=== PATIENT | male | born 1960 ===

== ENCOUNTER 2024-06-15 13:40 | Inpatient (IN) ==
[2024-06-15] MEDS: cefTRIAXone 1 GM VIAL IV ONE (14:04)
[2024-06-15] MEDS: morphine 4 MG/ML VIAL IV ONE (14:05)
[2024-06-15] MEDS: KETOROLAC 15 MG/ML VIAL IV ONE (14:06)
[2024-06-15] MEDS: LIDOCAINE 2% URO-JET 10 ML JEL.PF.APP UR ONE (14:34)
[2024-06-15 15:06] LABS: Basophils # (Auto) 0.02 K/mcL (0.00-0.30); Basophils % (Auto) 0.1 % (0.0-2.0); Eosinophils # (Auto) 0.28 K/mcL (0.00-0.70); Eosinophils % (Auto) 1.7 % (0.0-7.0); Hematocrit 39.5 % (40.1-51.0); Lymphocytes # (Auto) 1.02 K/mcL (1.50-4.80); Lymphocytes % (Auto) 6.1 % (15.5-49.0); Mean Cell Volume 92.5 fL (80.0-100.0); Mean Corpuscular HGB Conc 32.9 g/dL (31.0-36.0); Mean Platelet Volume 9.6 fL (8.8-12.5); Monocytes # (Auto) 1.62 K/mcL (0.10-0.90); Monocytes % (Auto) 9.7 % (1.0-12.0); Neutrophils % (Auto) 82.2 % (38.0-78.0); Platelet Count 305 K/mcL (140-440); RBC 4.27 M/mcL (4.63-6.08); Red Cell Distribution Width 13.7 % (11.5-14.5); WBC 16.8 K/mcL (4.5-11.0)
[2024-06-15 15:19] LABS: ALT/SGPT 23 U/L (<40); AST/SGOT 22 U/L (<40); Albumin 3.9 gm/dL (3.2-5.2); Albumin/Globulin Ratio 1.3 (1.0-2.3); Alkaline Phosphatase 86 U/L (39-117); Bilirubin,Total 0.2 mg/dL (0.1-1.0); Blood Urea Nitrogen 14 mg/dL (8-23); Calcium 9.1 mg/dL (8.6-10.4); Carbon Dioxide 20 mmol/L (22-30); Chloride 103 mmol/L (96-108); Glomerular Filtration Rate 80; Glucose 111 mg/dL (70-105); Potassium 4.4 mmol/L (3.3-5.1); Sodium 137 mmol/L (133-145)
[2024-06-15] MEDS: VANCOMYCIN 1,500 MG in 0.9 % SODIUM CHLORIDE 500 ML IV ONE (15:35)
[2024-06-15] MEDS: VANCOMYCIN PER PHARMACY IV ONE ×2 (15:56→20:46)
[2024-06-15] MEDS: ACETAMINOPHEN 500 MG TABLET PO ONE (17:13)
[2024-06-15] MEDS: HYDROcodone/APAP 5/325MG TABLET PO PRN (20:37)
[2024-06-15] MEDS: KETOROLAC 30 MG/ML VIAL IV PRN (20:37)
[2024-06-15] MEDS: VANCOMYCIN 500 MG in 0.9 % SODIUM CHLORIDE 100 ML IV ONE (21:09)
[2024-06-15] MEDS: AMPICILLIN SODIUM/SULBACTAM NA 3 GM in 0.9 % SODIUM CHLORIDE 100 ML IV SCH (21:09)
[2024-06-15] MEDS: SENNOSIDES 1 TABLET PO SCH (21:29)
[2024-06-15] MEDS: CLINDAMYCIN IN 0.9 % SOD CHLOR 900 MG/50 ML BAG IV SCH (22:14)
[2024-06-15] MEDS: 0.9 % SODIUM CHLORIDE 10 ML SYRINGE IV SCH (22:15)
[2024-06-16] MEDS: 0.9 % SODIUM CHLORIDE 1,000 ML IV SCH (00:12)
[2024-06-16] MEDS: HYDROmorphone 0.5 MG/0.5 ML SYRINGE IV PRN (01:41)
[2024-06-16 05:57] LABS: Basophils # (Auto) 0.02 K/mcL (0.00-0.30); Basophils % (Auto) 0.2 % (0.0-2.0); Eosinophils # (Auto) 0.26 K/mcL (0.00-0.70); Eosinophils % (Auto) 2.4 % (0.0-7.0); Hematocrit 34.1 % (40.1-51.0); Hemoglobin 11.1 g/dL (13.7-17.5); Lymphocytes # (Auto) 0.63 K/mcL (1.50-4.80); Lymphocytes % (Auto) 5.8 % (15.5-49.0); Mean Cell Volume 93.2 fL (80.0-100.0); Mean Corpuscular HGB Conc 32.6 g/dL (31.0-36.0); Mean Platelet Volume 9.2 fL (8.8-12.5); Monocytes # (Auto) 0.62 K/mcL (0.10-0.90); Monocytes % (Auto) 5.7 % (1.0-12.0); Neutrophils % (Auto) 85.7 % (38.0-78.0); Platelet Count 269 K/mcL (140-440); RBC 3.66 M/mcL (4.63-6.08); Red Cell Distribution Width 13.8 % (11.5-14.5); WBC 10.9 K/mcL (4.5-11.0)
[2024-06-16] MEDS: ONDANSETRON 4 MG/2 ML VIAL IV PRN (05:58)
[2024-06-16 06:22] LABS: ALT/SGPT 20 U/L (<40); AST/SGOT 16 U/L (<40); Albumin 3.4 gm/dL (3.2-5.2); Albumin/Globulin Ratio 1.4 (1.0-2.3); Alkaline Phosphatase 58 U/L (39-117); Bilirubin,Direct < 0.2 mg/dL (0-0.3); Bilirubin,Total 0.3 mg/dL (0.1-1.0); Blood Urea Nitrogen 13 mg/dL (8-23); Calcium 8.3 mg/dL (8.6-10.4); Carbon Dioxide 19 mmol/L (22-30); Chloride 104 mmol/L (96-108); Globulin 2.5 gm/dL (2.2-3.7); Glomerular Filtration Rate 91; Glucose 112 mg/dL (70-105); Lactate Dehydrogenase 133 U/L (135-225); Phosphorous 2.8 mg/dL (2.5-4.5); Potassium 4.2 mmol/L (3.3-5.1); Sodium 135 mmol/L (133-145); Triglycerides 124 mg/dL (<150); Uric Acid 4.8 mg/dL (2.5-8.0)
[2024-06-16] MEDS: ACETAMINOPHEN 500 MG TABLET PO PRN (07:13)
[2024-06-16] MEDS: METOCLOPRAMIDE 10 MG/2 ML VIAL IV PRN (07:19)
[2024-06-16] MEDS ORDERED: VANCOMYCIN PER PHARMACY IV SCH (07:30)
[2024-06-16] MEDS: VANCOMYCIN 1,500 MG in 0.9 % SODIUM CHLORIDE 500 ML IV SCH (08:49)
[2024-06-16] MEDS: METOCLOPRAMIDE 10 MG/2 ML VIAL ONE (12:35)
[2024-06-17 08:23] LABS: Basophils # (Auto) 0.03 K/mcL (0.00-0.30); Basophils % (Auto) 0.3 % (0.0-2.0); Eosinophils # (Auto) 0.59 K/mcL (0.00-0.70); Eosinophils % (Auto) 6.7 % (0.0-7.0); Hematocrit 31.9 % (40.1-51.0); Hemoglobin 10.3 g/dL (13.7-17.5); Lymphocytes # (Auto) 0.95 K/mcL (1.50-4.80); Lymphocytes % (Auto) 10.8 % (15.5-49.0); Mean Cell Volume 92.7 fL (80.0-100.0); Mean Corpuscular HGB Conc 32.3 g/dL (31.0-36.0); Monocytes # (Auto) 1.14 K/mcL (0.10-0.90); Neutrophils % (Auto) 68.9 % (38.0-78.0); Platelet Count 249 K/mcL (140-440); RBC 3.44 M/mcL (4.63-6.08); Red Cell Distribution Width 13.9 % (11.5-14.5); WBC 8.8 K/mcL (4.5-11.0)
[2024-06-17 08:42] LABS: ALT/SGPT 38 U/L (<40); AST/SGOT 32 U/L (<40); Albumin 3.1 gm/dL (3.2-5.2); Albumin/Globulin Ratio 1.4 (1.0-2.3); Alkaline Phosphatase 61 U/L (39-117); Bilirubin,Direct < 0.2 mg/dL (0-0.3); Bilirubin,Total 0.3 mg/dL (0.1-1.0); Blood Urea Nitrogen 10 mg/dL (8-23); Calcium 8.1 mg/dL (8.6-10.4); Carbon Dioxide 20 mmol/L (22-30); Chloride 105 mmol/L (96-108); Globulin 2.2 gm/dL (2.2-3.7); Glomerular Filtration Rate 101; Glucose 118 mg/dL (70-105); Lactate Dehydrogenase 150 U/L (135-225); Phosphorous 2.8 mg/dL (2.5-4.5); Potassium 3.9 mmol/L (3.3-5.1); Sodium 136 mmol/L (133-145); Triglycerides 110 mg/dL (<150); Uric Acid 4.6 mg/dL (2.5-8.0)
[2024-06-18 05:49] LABS: Basophils # (Auto) 0.03 K/mcL (0.00-0.30); Basophils % (Auto) 0.4 % (0.0-2.0); Eosinophils # (Auto) 0.58 K/mcL (0.00-0.70); Eosinophils % (Auto) 7.7 % (0.0-7.0); Hematocrit 31.7 % (40.1-51.0); Hemoglobin 10.3 g/dL (13.7-17.5); Lymphocytes # (Auto) 1.27 K/mcL (1.50-4.80); Mean Cell Volume 92.4 fL (80.0-100.0); Mean Corpuscular HGB Conc 32.5 g/dL (31.0-36.0); Mean Platelet Volume 9.1 fL (8.8-12.5); Monocytes # (Auto) 1.03 K/mcL (0.10-0.90); Monocytes % (Auto) 13.8 % (1.0-12.0); Neutrophils % (Auto) 60.7 % (38.0-78.0); Platelet Count 283 K/mcL (140-440); RBC 3.43 M/mcL (4.63-6.08); Red Cell Distribution Width 13.8 % (11.5-14.5); WBC 7.5 K/mcL (4.5-11.0)
[2024-06-18 06:33] LABS: ALT/SGPT 38 U/L (<40); AST/SGOT 24 U/L (<40); Albumin/Globulin Ratio 1.3 (1.0-2.3); Alkaline Phosphatase 60 U/L (39-117); Bilirubin,Direct < 0.2 mg/dL (0-0.3); Bilirubin,Total 0.3 mg/dL (0.1-1.0); Blood Urea Nitrogen 6 mg/dL (8-23); Calcium 8.3 mg/dL (8.6-10.4); Carbon Dioxide 22 mmol/L (22-30); Chloride 106 mmol/L (96-108); Globulin 2.4 gm/dL (2.2-3.7); Glomerular Filtration Rate 101; Glucose 116 mg/dL (70-105); Lactate Dehydrogenase 145 U/L (135-225); Phosphorous 3.7 mg/dL (2.5-4.5); Potassium 3.7 mmol/L (3.3-5.1); Sodium 138 mmol/L (133-145); Triglycerides 114 mg/dL (<150); Uric Acid 4.5 mg/dL (2.5-8.0)
[2024-06-18] MEDS ORDERED: ALBUTEROL SULFATE 60 PUFF INHALER INH PRN (08:10)
[2024-06-18] MEDS: oxyCODONE IR 5 MG TABLET PO PRN (09:11)
[2024-06-18] MEDS: ATORVASTATIN 40 MG TABLET PO SCH (09:13)
[2024-06-18] MEDS: DONEPEZIL 10 MG TABLET PO SCH (09:13)
[2024-06-18] MEDS: ESCITALOPRAM 20 MG TABLET PO SCH (09:13)
[2024-06-18] MEDS: LORATADINE 10 MG TABLET PO SCH (09:14)
[2024-06-18] MEDS: Budesonide-Formoterol 160-4.5 mcg/actuation HFA INH SCH (09:15)
[2024-06-18] MEDS: MONTELUKAST 10 MG TABLET PO SCH (09:15)
[2024-06-18] MEDS: MODAFINIL 200 MG TABLET PO SCH (09:15)
[2024-06-18] MEDS: HYDROmorphone 0.5 MG/0.5 ML SYRINGE IV PRN (10:41)
[2024-06-18] MEDS: KETOROLAC 15 MG/ML VIAL IV SCH (12:32)
[2024-06-18] MEDS: AMOXICILLIN/POTASSIUM CLAV 875 MG TABLET PO SCH (20:53)
[2024-06-18] MEDS: CLINDAMYCIN 150 MG CAPSULE PO SCH (21:28)
[2024-06-19 06:16] LABS: Basophils # (Auto) 0.04 K/mcL (0.00-0.30); Basophils % (Auto) 0.5 % (0.0-2.0); Eosinophils # (Auto) 0.66 K/mcL (0.00-0.70); Eosinophils % (Auto) 8.4 % (0.0-7.0); Hematocrit 33.5 % (40.1-51.0); Hemoglobin 10.9 g/dL (13.7-17.5); Lymphocytes # (Auto) 1.47 K/mcL (1.50-4.80); Lymphocytes % (Auto) 18.8 % (15.5-49.0); Mean Cell Volume 93.1 fL (80.0-100.0); Mean Corpuscular HGB Conc 32.5 g/dL (31.0-36.0); Mean Platelet Volume 9.1 fL (8.8-12.5); Monocytes # (Auto) 1.01 K/mcL (0.10-0.90); Monocytes % (Auto) 12.9 % (1.0-12.0); Neutrophils % (Auto) 58.9 % (38.0-78.0); Platelet Count 311 K/mcL (140-440); Red Cell Distribution Width 13.8 % (11.5-14.5); WBC 7.8 K/mcL (4.5-11.0)
[2024-06-19] MEDS ORDERED: VANCOMYCIN PER PHARMACY IV SCH (06:57)
[2024-06-19 07:19] LABS: ALT/SGPT 39 U/L (<40); AST/SGOT 21 U/L (<40); Albumin 3.4 gm/dL (3.2-5.2); Albumin/Globulin Ratio 1.3 (1.0-2.3); Alkaline Phosphatase 63 U/L (39-117); Bilirubin,Direct < 0.2 mg/dL (0-0.3); Bilirubin,Total 0.3 mg/dL (0.1-1.0); Blood Urea Nitrogen 9 mg/dL (8-23); Carbon Dioxide 21 mmol/L (22-30); Chloride 103 mmol/L (96-108); Globulin 2.7 gm/dL (2.2-3.7); Glomerular Filtration Rate 96; Glucose 107 mg/dL (70-105); Lactate Dehydrogenase 149 U/L (135-225); Phosphorous 4.8 mg/dL (2.5-4.5); Potassium 4.2 mmol/L (3.3-5.1); Sodium 138 mmol/L (133-145); Triglycerides 110 mg/dL (<150)
[2024-06-19] MEDS: PIPERACILLIN SODIUM/TAZOBACTAM 4.5 GM in DEXTROSE 5% IN WATER 100 ML IV SCH (07:31)
[2024-06-19] MEDS: VANCOMYCIN 1,500 MG in 0.9 % SODIUM CHLORIDE 500 ML IV SCH (09:04)
[2024-06-19] MEDS ORDERED: GADOBENATE DIMEGLUMINE 20 ML/VIAL IV ONE (10:25)
[2024-06-19] MEDS: CLINDAMYCIN IN 0.9 % SOD CHLOR 900 MG/50 ML BAG IV SCH (12:00)
[2024-06-20 06:43] LABS: Basophils # (Auto) 0.05 K/mcL (0.00-0.30); Basophils % (Auto) 0.6 % (0.0-2.0); Eosinophils # (Auto) 0.72 K/mcL (0.00-0.70); Eosinophils % (Auto) 8.4 % (0.0-7.0); Hematocrit 30.3 % (40.1-51.0); Hemoglobin 9.8 g/dL (13.7-17.5); Lymphocytes # (Auto) 1.31 K/mcL (1.50-4.80); Lymphocytes % (Auto) 15.4 % (15.5-49.0); Mean Cell Volume 93.2 fL (80.0-100.0); Mean Corpuscular HGB Conc 32.3 g/dL (31.0-36.0); Mean Platelet Volume 9.1 fL (8.8-12.5); Monocytes # (Auto) 1.03 K/mcL (0.10-0.90); Monocytes % (Auto) 12.1 % (1.0-12.0); Platelet Count 342 K/mcL (140-440); RBC 3.25 M/mcL (4.63-6.08); Red Cell Distribution Width 14.1 % (11.5-14.5); WBC 8.5 K/mcL (4.5-11.0)
[2024-06-20 07:17] LABS: ALT/SGPT 27 U/L (<40); AST/SGOT 15 U/L (<40); Albumin 3.2 gm/dL (3.2-5.2); Albumin/Globulin Ratio 1.3 (1.0-2.3); Alkaline Phosphatase 54 U/L (39-117); Bilirubin,Direct < 0.2 mg/dL (0-0.3); Bilirubin,Total < 0.2 mg/dL (0.1-1.0); Blood Urea Nitrogen 8 mg/dL (8-23); Calcium 8.5 mg/dL (8.6-10.4); Carbon Dioxide 23 mmol/L (22-30); Chloride 102 mmol/L (96-108); Globulin 2.4 gm/dL (2.2-3.7); Glomerular Filtration Rate 96; Glucose 121 mg/dL (70-105); Lactate Dehydrogenase 133 U/L (135-225); Phosphorous 4.4 mg/dL (2.5-4.5); Potassium 3.8 mmol/L (3.3-5.1); Sodium 136 mmol/L (133-145); Triglycerides 82 mg/dL (<150); Uric Acid 3.6 mg/dL (2.5-8.0)
[2024-06-20] MEDS: oxyCODONE IR 5 MG TABLET PO PRN (07:20)
[2024-06-20] MEDS: ACETAMINOPHEN 500 MG TABLET PO PRN (07:21)
[2024-06-20] MEDS: HYDROmorphone 1 MG/ML SYRINGE IV PRN (07:25)
[2024-06-20] MEDS ORDERED: ALTEPLASE 2 MG VIAL IV PRN (07:55)
[2024-06-20 08:45] LABS: Partial Thromboplastin Time 33.8 sec (20.0-37.0); Prothrombin Time 13.8 sec (11.9-14.5)
[2024-06-20] MEDS ORDERED: LIDOCAINE 1% 20 ML VIAL SQ ONE (10:39)
[2024-06-20] MEDS ORDERED: SODIUM CHLORIDE IRRIG SOLUTION 500 ML BOTTLE IRR ONE (10:39)
[2024-06-20] MEDS ORDERED: NALOXONE HCL 0.4 MG/ML VIAL IV PRN (11:09)
[2024-06-20] MEDS: 0.9 % SODIUM CHLORIDE 10 ML SYRINGE IV SCH (11:15)
[2024-06-21 06:43] LABS: Basophils # (Auto) 0.05 K/mcL (0.00-0.30); Basophils % (Auto) 0.6 % (0.0-2.0); Eosinophils # (Auto) 0.85 K/mcL (0.00-0.70); Eosinophils % (Auto) 10.3 % (0.0-7.0); Hematocrit 33.3 % (40.1-51.0); Hemoglobin 10.8 g/dL (13.7-17.5); Lymphocytes # (Auto) 1.59 K/mcL (1.50-4.80); Lymphocytes % (Auto) 19.2 % (15.5-49.0); Mean Cell Volume 93.3 fL (80.0-100.0); Mean Corpuscular HGB Conc 32.4 g/dL (31.0-36.0); Mean Platelet Volume 8.9 fL (8.8-12.5); Monocytes # (Auto) 0.97 K/mcL (0.10-0.90); Monocytes % (Auto) 11.7 % (1.0-12.0); Neutrophils % (Auto) 57.6 % (38.0-78.0); Platelet Count 384 K/mcL (140-440); RBC 3.57 M/mcL (4.63-6.08); Red Cell Distribution Width 13.8 % (11.5-14.5); WBC 8.3 K/mcL (4.5-11.0)
[2024-06-21 07:22] LABS: ALT/SGPT 28 U/L (<40); AST/SGOT 18 U/L (<40); Albumin 3.6 gm/dL (3.2-5.2); Albumin/Globulin Ratio 1.4 (1.0-2.3); Alkaline Phosphatase 56 U/L (39-117); Bilirubin,Direct < 0.2 mg/dL (0-0.3); Bilirubin,Total < 0.2 mg/dL (0.1-1.0); Blood Urea Nitrogen 8 mg/dL (8-23); Calcium 8.9 mg/dL (8.6-10.4); Carbon Dioxide 24 mmol/L (22-30); Chloride 102 mmol/L (96-108); Globulin 2.6 gm/dL (2.2-3.7); Glomerular Filtration Rate 91; Glucose 113 mg/dL (70-105); Lactate Dehydrogenase 160 U/L (135-225); Phosphorous 4.3 mg/dL (2.5-4.5); Potassium 4.1 mmol/L (3.3-5.1); Sodium 139 mmol/L (133-145); Triglycerides 90 mg/dL (<150); Uric Acid 3.1 mg/dL (2.5-8.0)
[2024-06-21] MEDS: LINEZOLID 600 MG TABLET PO SCH (12:00)
[2024-06-22 05:54] LABS: Basophils # (Auto) 0.04 K/mcL (0.00-0.30); Basophils % (Auto) 0.5 % (0.0-2.0); Eosinophils # (Auto) 0.76 K/mcL (0.00-0.70); Eosinophils % (Auto) 8.8 % (0.0-7.0); Hematocrit 34.7 % (40.1-51.0); Hemoglobin 11.2 g/dL (13.7-17.5); Lymphocytes # (Auto) 1.25 K/mcL (1.50-4.80); Lymphocytes % (Auto) 14.5 % (15.5-49.0); Mean Cell Volume 92.5 fL (80.0-100.0); Mean Corpuscular HGB Conc 32.3 g/dL (31.0-36.0); Mean Platelet Volume 8.8 fL (8.8-12.5); Monocytes # (Auto) 0.73 K/mcL (0.10-0.90); Monocytes % (Auto) 8.5 % (1.0-12.0); Neutrophils % (Auto) 67.1 % (38.0-78.0); Platelet Count 416 K/mcL (140-440); RBC 3.75 M/mcL (4.63-6.08); Red Cell Distribution Width 13.6 % (11.5-14.5); WBC 8.6 K/mcL (4.5-11.0)
[2024-06-22 06:47] LABS: ALT/SGPT 26 U/L (<40); AST/SGOT 20 U/L (<40); Albumin 3.7 gm/dL (3.2-5.2); Albumin/Globulin Ratio 1.2 (1.0-2.3); Alkaline Phosphatase 59 U/L (39-117); Bilirubin,Direct < 0.2 mg/dL (0-0.3); Bilirubin,Total 0.3 mg/dL (0.1-1.0); Blood Urea Nitrogen 7 mg/dL (8-23); Calcium 9.2 mg/dL (8.6-10.4); Carbon Dioxide 23 mmol/L (22-30); Chloride 98 mmol/L (96-108); Glomerular Filtration Rate 91; Glucose 198 mg/dL (70-105); Lactate Dehydrogenase 181 U/L (135-225); Phosphorous 3.4 mg/dL (2.5-4.5); Potassium 4.2 mmol/L (3.3-5.1); Sodium 138 mmol/L (133-145); Triglycerides 88 mg/dL (<150)
[2024-06-22] MEDS: ACETAMINOPHEN 1,000 MG/100 ML BAG IV SCH (09:49)
[2024-06-22] MEDS: KETOROLAC 15 MG/ML VIAL IV SCH (09:49)
[2024-06-22] MEDS: oxyCODONE IR 5 MG TABLET PO PRN (13:28)
[2024-06-22] MEDS: IBUPROFEN 800 MG TABLET PO PRN (13:28)
[2024-06-22] MEDS: ACETAMINOPHEN 500 MG TABLET PO SCH (14:36)
[2024-06-22] MEDS: HYDROmorphone 2 MG TABLET PO PRN (19:03)
[2024-06-23 06:58] LABS: Basophils # (Auto) 0.04 K/mcL (0.00-0.30); Basophils % (Auto) 0.5 % (0.0-2.0); Eosinophils # (Auto) 0.66 K/mcL (0.00-0.70); Eosinophils % (Auto) 8.7 % (0.0-7.0); Hematocrit 33.2 % (40.1-51.0); Hemoglobin 10.7 g/dL (13.7-17.5); Lymphocytes # (Auto) 1.39 K/mcL (1.50-4.80); Lymphocytes % (Auto) 18.3 % (15.5-49.0); Mean Cell Volume 92.5 fL (80.0-100.0); Mean Corpuscular HGB Conc 32.2 g/dL (31.0-36.0); Mean Platelet Volume 9.2 fL (8.8-12.5); Monocytes # (Auto) 0.83 K/mcL (0.10-0.90); Monocytes % (Auto) 10.9 % (1.0-12.0); Neutrophils % (Auto) 61.1 % (38.0-78.0); Platelet Count 415 K/mcL (140-440); RBC 3.59 M/mcL (4.63-6.08); Red Cell Distribution Width 13.6 % (11.5-14.5); WBC 7.6 K/mcL (4.5-11.0)
[2024-06-23 07:21] LABS: ALT/SGPT 27 U/L (<40); AST/SGOT 21 U/L (<40); Albumin 3.4 gm/dL (3.2-5.2); Albumin/Globulin Ratio 1.3 (1.0-2.3); Alkaline Phosphatase 53 U/L (39-117); Bilirubin,Direct < 0.2 mg/dL (0-0.3); Bilirubin,Total 0.3 mg/dL (0.1-1.0); Blood Urea Nitrogen 9 mg/dL (8-23); Calcium 8.7 mg/dL (8.6-10.4); Carbon Dioxide 21 mmol/L (22-30); Chloride 102 mmol/L (96-108); Globulin 2.7 gm/dL (2.2-3.7); Glomerular Filtration Rate 96; Glucose 114 mg/dL (70-105); Lactate Dehydrogenase 173 U/L (135-225); Phosphorous 3.6 mg/dL (2.5-4.5); Potassium 3.8 mmol/L (3.3-5.1); Sodium 137 mmol/L (133-145); Triglycerides 76 mg/dL (<150); Uric Acid 3.2 mg/dL (2.5-8.0)
[2024-06-23] MEDS: 0.9 % SODIUM CHLORIDE 10 ML SYRINGE IV PRN (08:48)
[2024-06-23] MEDS ORDERED: cefTRIAXone 1 GM VIAL IV SCH (10:35)
[2024-06-23] MEDS: cefTRIAXone 2 GM in DEXTROSE 5% IN WATER 50 ML IV SCH (11:07)
[2024-06-23] MEDS: metroNIDAZOLE 500 MG TABLET PO SCH (14:05)
[2024-06-24] MEDS: HYDROmorphone 1 MG/ML SYRINGE IV PRN (23:37)
[2024-06-25 06:23] LABS: Blood Urea Nitrogen 9 mg/dL (8-23); C-Reactive Protein 0.95 mg/dL (0.03-0.80); Calcium 8.9 mg/dL (8.6-10.4); Carbon Dioxide 23 mmol/L (22-30); Chloride 100 mmol/L (96-108); Glomerular Filtration Rate 96; Glucose 96 mg/dL (70-105); Sodium 135 mmol/L (133-145)
== END 2024-06-25 12:00 | disposition home or self-care (01) | DRG 603 ==
LOC: ED 13:40 → MEDSUR 18:55
PROVIDERS: ADMIT Internal Medicine; ATTEND Internal Medicine